=== PATIENT | female | born 1990 | race Caucasian/White ===

== ENCOUNTER 2018-10-12 22:40 | Emergency (ER) | payer OTHER ==
[~2018-10-12] VITALS: Ht 162.6 cm; Wt 59.0 kg
[~2018-10-12 22:40] MED LIST: DEPAKOTE; KLONOPIN; RISPERDAL
[2018-10-13 02:03] VITALS: BP 110/70
== END 2018-10-13 02:15 | disposition home or self-care (01) ==
LOC: EMS 22:42
DX: F20.9 Schizophrenia, unspecified (principal)

== ENCOUNTER 2018-11-25 17:48 | Inpatient (IN) | payer MEDICAID, OTHER ==
[~2018-11-25] VITALS: Ht 162.6 cm; Wt 76.1 kg
[2018-11-25] MEDS ORDERED: RISP2 PO (18:31)
[2018-11-25] MEDS ORDERED: TRAZ-220 PO (18:31)
[2018-11-25] MEDS ORDERED: PALI234D IM (18:31)
[2018-11-25] MEDS ORDERED: QUET200T PO (18:31)
[2018-11-25] MEDS ORDERED: OLAN10TA3 PO (18:31)
[2018-11-25] MEDS ORDERED: DIVA500T52 PO (18:31)
[2018-11-25 18:43] LABS: AMPHET/METH SCREEN,URINE NEGATIVE (NEGATIVE); BARBITURATE SCREEN, URINE NEGATIVE (NEGATIVE); BENZODIAZEPINES SCREEN,URINE NEGATIVE (NEGATIVE); CANNABINOID SCREEN,URINE NEGATIVE (NEGATIVE); COCAINE SCREEN,URINE NEGATIVE (NEGATIVE); METHADONE SCREEN, URINE NEGATIVE (NEGATIVE); OPIATE SCREEN,URINE NEGATIVE (NEGATIVE); PHENCYCLIDINE SCREEN,URINE NEGATIVE (NEGATIVE)
[2018-11-25 18:54] LABS: BASOPHILS % (AUTO) 0.2 % (0.0-2.0); EOSINOPHILS % (AUTO) 0 % (1.0-6.0); HEMATOCRIT 39.1 % (36-46); HEMOGLOBIN 13.1 g/dL (12.0-16.0); LYMPHOCYTES # (AUTO) 2.8 K/uL (1.0-4.8); LYMPHOCYTES % (AUTO) 28.9 % (22.0-44.0); MEAN CORPUSCULAR HEMOGLOBIN 33.1 pg (26.0-34.0); MEAN CORPUSCULAR HGB CONC 33.6 G/dL (31.0-37.0); MEAN CORPUSCULAR VOLUME 99 fL (80-100); MONOCYTES % (AUTO) 10.4 % (2.0-9.0); NEUTROPHILS # (AUTO) 5.8 K/uL (1.8-7.7); NEUTROPHILS % (AUTO) 60.5 % (40.0-70.0); PLATELET COUNT (AUTO) 231 K/uL (150-450); RED BLOOD CELL COUNT(AUTO) 3.96 MIL/uL (4.00-5.20); RED CELL DISTRIBUTION WIDTH 12.8 % (11.5-14.5)
[2018-11-25 19:03] LABS: ANION GAP 6 mmol/L (8-16); CALCIUM, TOTAL 9.2 mg/dL (8.8-10.5); CARBON DIOXIDE 29 mmol/L (22-29); CHLORIDE 105 mmol/L (98-107); CREATININE 0.77 mg/dL (0.60-1.30); GLOMERULAR FILTR. RATE CALC > 60 mL/min (>60); GLUCOSE,RANDOM 85 mg/dL (70-110); POTASSIUM 3.9 mmol/L (3.5-5.1); SODIUM SERUM 140 mmol/L (136-145); UREA NITROGEN, BLOOD 14 mg/dL (7-18)
[2018-11-25] MEDS ORDERED: ACETAMINOPHEN 325 MG TABLET PO ONE (19:30)
[2018-11-25 19:31] LABS: ALANINE AMINOTRANSFERASE 15 U/L (12-78); ALBUMIN 3.5 g/dL (3.4-5.0); ALKALINE PHOSPHATASE 66 U/L (46-116); ASPARTATE AMINOTRANSFERASE 10 U/L (15-37); BILIRUBIN,TOTAL 0.3 mg/dL (0.1-1.0); HCG,QUANTITATIVE 1 mIU/mL (0-6); TOTAL PROTEIN, SERUM 7.6 g/dL (6.4-8.2)
[2018-11-25 21:20] LABS: VALPROIC ACID 80 mcg/mL (50-100)
[2018-11-25] MEDS ORDERED: RisperiDONE 1 MG TABLET PO ONE (21:30)
[2018-11-25] MEDS ORDERED: QUEtiapine FUMARATE 100 MG TABLET PO ONE (21:30)
[2018-11-25] MEDS ORDERED: TraZODone HCL 50 MG TABLET PO ONE (21:30)
[2018-11-25] MEDS ORDERED: LORazepam 2 MG TABLET PO PRN (22:00)
[2018-11-26 08:52] LABS: HEMOGLOBIN A1C 5.5 % (4.5-6.2)
[2018-11-26 09:01] LABS: ALANINE AMINOTRANSFERASE 14 U/L (12-78); ALKALINE PHOSPHATASE 56 U/L (46-116); ANION GAP 6 mmol/L (8-16); ASPARTATE AMINOTRANSFERASE 13 U/L (15-37); BILIRUBIN,TOTAL 0.2 mg/dL (0.1-1.0); CALCIUM, TOTAL 8.8 mg/dL (8.8-10.5); CARBON DIOXIDE 29 mmol/L (22-29); CHLORIDE 105 mmol/L (98-107); CHOL/HDL RATIO 1.9 (3.9-5.7); CHOLESTEROL 143 mg/dL (131-200); CREATININE 0.67 mg/dL (0.60-1.30); FREE T4 (FREE THYROXINE) 0.76 ng/dL (0.76-1.46); GLOMERULAR FILTR. RATE CALC > 60 mL/min (>60); GLUCOSE,RANDOM 81 mg/dL (70-110); HCG,QUANTITATIVE < 1 mIU/mL (0-6); HDL CHOLESTEROL 77 mg/dL (40-60); LDL CHOL (CALC.) 58 mg/dL (0-130); POTASSIUM 4.6 mmol/L (3.5-5.1); SODIUM SERUM 140 mmol/L (136-145); TOTAL PROTEIN, SERUM 6.8 g/dL (6.4-8.2); TRIGLYCERIDES 39 mg/dL (15-150); UREA NITROGEN, BLOOD 12 mg/dL (7-18); VALPROIC ACID 40 mcg/mL (50-100)
[2018-11-26] MEDS ORDERED: MAGNESIUM HYDROXIDE SUSPENSION 30 ML UDCUP PO PRN (16:00)
[2018-11-26] MEDS ORDERED: TUBERCULIN, PURIFIED PROTEIN DERIVATIVE 5 TU/0.1 ML SYRINGE ID ONE (16:00)
[2018-11-26] MEDS ORDERED: MAG HYDROX/AL HYDROX/SIMETH ES 30 ML SUSPENSION UDCUP PO PRN (16:00)
[2018-11-26] MEDS ORDERED: ACETAMINOPHEN 325 MG TABLET PO PRN (16:00)
[2018-11-26] MEDS ORDERED: LOPERAMIDE HCL 2 MG CAPSULE PO PRN (16:00)
[2018-11-26] MEDS ORDERED: GuaiFENesin/D-METHORPHAN [SUGAR-FREE] 200-20MG/10 ML SYRUP UDCUP PO PRN (16:00)
[2018-11-26] MEDS ORDERED: PROMETHAZINE HCL 25 MG TABLET PO PRN (16:00)
[2018-11-26] MEDS: DIVALPROEX SODIUM 500 MG ER TABLET PO SCH (21:01)
[2018-11-26] MEDS: THIAMINE HCL 100 MG TABLET PO SCH (21:02)
[2018-11-26 21:45] VITALS: BP 105/73
[2018-11-27 03:06] LABS: HSV 1 TYPE SPECIFIC IGG <0.91 index (0.00-0.90)
[2018-11-27 06:06] LABS: HIV 1-2 SCREEN 4TH GEN W/RFLX Non Reactive (Non Reactive)
[2018-11-27 06:28] VITALS: BP 110/68
[2018-11-27 07:42] LABS: BASOPHILS % (AUTO) 0.3 % (0.0-2.0); EOSINOPHILS % (AUTO) 0.1 % (1.0-6.0); HEMATOCRIT 38.4 % (36-46); HEMOGLOBIN 12.7 g/dL (12.0-16.0); LYMPHOCYTES # (AUTO) 4.3 K/uL (1.0-4.8); LYMPHOCYTES % (AUTO) 44.7 % (22.0-44.0); MEAN CORPUSCULAR HEMOGLOBIN 33.1 pg (26.0-34.0); MEAN CORPUSCULAR VOLUME 100 fL (80-100); MONOCYTES # (AUTO) 1.2 K/uL (0.1-1.0); MONOCYTES % (AUTO) 12.1 % (2.0-9.0); NEUTROPHILS # (AUTO) 4.1 K/uL (1.8-7.7); NEUTROPHILS % (AUTO) 42.8 % (40.0-70.0); PLATELET COUNT (AUTO) 221 K/uL (150-450); RED BLOOD CELL COUNT(AUTO) 3.83 MIL/uL (4.00-5.20); RED CELL DISTRIBUTION WIDTH 13.1 % (11.5-14.5)
[2018-11-27 08:12] LABS: FREE T4 (FREE THYROXINE) 0.95 ng/dL (0.76-1.46); THYROID STIMULATING HORMONE 6.78 uIU/mL (0.36-3.74)
[2018-11-27 08:25] VITALS: BP 112/48
[2018-11-27] MEDS ORDERED: CloZAPine 25 MG TABLET PO SCH (09:00)
[2018-11-27] MEDS: FOLIC ACID 1 MG TABLET PO SCH (09:04)
[2018-11-27] MEDS: THIAMINE HCL 100 MG TABLET PO SCH ×2 (09:04→16:07)
[2018-11-27] MEDS: MULTIVITAMINS WITH MINERALS, THERAPEUTIC TABLET PO SCH (09:04)
[2018-11-27] MEDS: LORazepam 0.5 MG TABLET PO PRN ×2 (09:05→19:01)
[2018-11-27 10:30] VITALS: BP 125/69
[2018-11-27 10:46] VITALS: BP 117/72
[2018-11-27 16:23] VITALS: BP 111/64
[2018-11-27] MEDS: HydrOXYzine PAMOATE 50 MG CAPSULE PO PRN (19:01)
[2018-11-27] MEDS: DIVALPROEX SODIUM 500 MG ER TABLET PO SCH (20:03)
[2018-11-27] MEDS ORDERED: HALOPERIDOL LACTATE 5 MG/ML VIAL IM ONE (21:45)
[2018-11-27] MEDS ORDERED: LORazepam 2 MG/ML VIAL ONE (21:45)
[2018-11-27] MEDS ORDERED: HALOPERIDOL LACTATE 5 MG/ML VIAL ONE (21:45)
[2018-11-27] MEDS ORDERED: DiphenhydrAMINE HCL 50 MG/ML VIAL ONE (21:45)
[2018-11-27] MEDS ORDERED: LORazepam 2 MG/ML VIAL IM ONE (21:45)
[2018-11-27] MEDS ORDERED: DiphenhydrAMINE HCL 50 MG/ML VIAL IM ONE (21:45)
[2018-11-28 05:44] VITALS: BP 108/68
[2018-11-28] MEDS ORDERED: CloZAPine 25 MG TABLET PO SCH ×2 (09:00→21:00)
[2018-11-28] MEDS: FOLIC ACID 1 MG TABLET PO SCH (09:20)
[2018-11-28] MEDS: MULTIVITAMINS WITH MINERALS, THERAPEUTIC TABLET PO SCH (09:20)
[2018-11-28] MEDS: THIAMINE HCL 100 MG TABLET PO SCH ×2 (09:20→16:14)
[2018-11-28] MEDS: LORazepam 0.5 MG TABLET PO PRN ×2 (12:09→16:14)
[2018-11-28] MEDS: HydrOXYzine PAMOATE 50 MG CAPSULE PO PRN (12:09)
[2018-11-28 14:04] VITALS: BP 115/62
[2018-11-28 16:00] VITALS: BP 114/64
[2018-11-28] MEDS: DIVALPROEX SODIUM 500 MG ER TABLET PO SCH (20:07)
[2018-11-29 05:56] VITALS: BP 103/62
[2018-11-29 08:20] VITALS: BP 93/75
[2018-11-29] MEDS: FOLIC ACID 1 MG TABLET PO SCH (08:40)
[2018-11-29] MEDS: MULTIVITAMINS WITH MINERALS, THERAPEUTIC TABLET PO SCH (08:40)
[2018-11-29] MEDS: THIAMINE HCL 100 MG TABLET PO SCH ×2 (08:40→17:09)
[2018-11-29] MEDS: HydrOXYzine PAMOATE 50 MG CAPSULE PO PRN ×2 (08:40→16:06)
[2018-11-29] MEDS ORDERED: CloZAPine 25 MG TABLET PO SCH ×2 (09:00→21:00)
[2018-11-29] MEDS: LORazepam 0.5 MG TABLET PO PRN ×2 (12:21→16:06)
[2018-11-29] MEDS: OLANZapine 5 MG RAPDIS TABLET PO PRN (16:06)
[2018-11-29 16:08] VITALS: BP 140/92
[2018-11-29] MEDS: DIVALPROEX SODIUM 500 MG ER TABLET PO SCH (20:15)
[2018-11-29] MEDS: ZOLPIDEM TARTRATE 10 MG TABLET PO PRN (21:02)
[2018-11-30 02:53] VITALS: BP 132/87
[2018-11-30] MEDS ORDERED: AZITHROMYCIN 250 MG TABLET PO ONE (07:45)
[2018-11-30 08:07] VITALS: BP 112/59
[2018-11-30] MEDS: MULTIVITAMINS WITH MINERALS, THERAPEUTIC TABLET PO SCH (09:44)
[2018-11-30] MEDS: CloZAPine 25 MG TABLET PO SCH ×2 (09:44→20:07)
[2018-11-30] MEDS: THIAMINE HCL 100 MG TABLET PO SCH ×2 (09:44→17:04)
[2018-11-30] MEDS: FLUoxetine HCL 10 MG CAPSULE PO SCH (09:44)
[2018-11-30] MEDS: FOLIC ACID 1 MG TABLET PO SCH (09:44)
[2018-11-30] MEDS ORDERED: PROZ10 PO (12:29)
[2018-11-30 16:00] VITALS: BP 142/77
[2018-11-30] MEDS ORDERED: CefTRIAXone SODIUM 1 GM/VIAL IM ONE (16:00)
[2018-11-30] MEDS ORDERED: LIDOCAINE/PF 1% 2 ML VIAL IM ONE (16:00)
[2018-11-30] MEDS: DIVALPROEX SODIUM 500 MG ER TABLET PO SCH (20:07)
[2018-11-30] MEDS: LORazepam 0.5 MG TABLET PO PRN (20:19)
[2018-11-30] MEDS: ZOLPIDEM TARTRATE 10 MG TABLET PO PRN (20:50)
[2018-12-01 05:54] VITALS: BP 120/70
[2018-12-01 08:01] VITALS: BP 117/71
[2018-12-01] MEDS: HydrOXYzine PAMOATE 50 MG CAPSULE PO PRN (09:31)
[2018-12-01] MEDS: FLUoxetine HCL 10 MG CAPSULE PO SCH (09:31)
[2018-12-01] MEDS: MULTIVITAMINS WITH MINERALS, THERAPEUTIC TABLET PO SCH (09:31)
[2018-12-01] MEDS: LORazepam 0.5 MG TABLET PO PRN ×2 (09:32→16:26)
[2018-12-01] MEDS: FOLIC ACID 1 MG TABLET PO SCH (09:32)
[2018-12-01] MEDS: CloZAPine 25 MG TABLET PO SCH ×2 (09:32→21:17)
[2018-12-01] MEDS: THIAMINE HCL 100 MG TABLET PO SCH ×2 (09:32→16:25)
[2018-12-01 15:30] VITALS: BP 139/90
[2018-12-01 16:35] VITALS: BP 132/87
[2018-12-01] MEDS: ZOLPIDEM TARTRATE 10 MG TABLET PO PRN (21:15)
[2018-12-01] MEDS: DIVALPROEX SODIUM 500 MG ER TABLET PO SCH (21:16)
[2018-12-02 03:35] VITALS: BP 128/85
[2018-12-02] MEDS ORDERED: OMEPRAZOLE 20 MG CAPSULE PO SCH (06:30)
[2018-12-02 08:04] VITALS: BP 100/50
[2018-12-02] MEDS ORDERED: CloZAPine 25 MG TABLET PO SCH (09:00)
[2018-12-02] MEDS: FLUoxetine HCL 10 MG CAPSULE PO SCH (09:16)
[2018-12-02] MEDS: OLANZapine 5 MG RAPDIS TABLET PO PRN (09:16)
[2018-12-02] MEDS: THIAMINE HCL 100 MG TABLET PO SCH ×2 (09:16→16:01)
[2018-12-02] MEDS: FOLIC ACID 1 MG TABLET PO SCH (09:16)
[2018-12-02] MEDS: MULTIVITAMINS WITH MINERALS, THERAPEUTIC TABLET PO SCH (09:16)
[2018-12-02] MEDS ORDERED: CLOZ25TA4 PO ×2 (09:51→11:12)
[2018-12-02] MEDS ORDERED: PROZ10 PO ×2 (09:51→11:12)
[2018-12-02] MEDS ORDERED: DIVA500T52 PO ×2 (09:51→11:12)
[2018-12-02] MEDS ORDERED: CLOZ100 PO ×2 (09:51→11:12)
[2018-12-02] MEDS ORDERED: CloZAPine 100 MG TABLET PO SCH (21:00)
[2018-12-03] MEDS ORDERED: CloZAPine 25 MG TABLET PO SCH (09:00)
[2018-12-03] MEDS ORDERED: CloZAPine 100 MG TABLET PO SCH (21:00)
[2018-12-04] MEDS ORDERED: CloZAPine 25 MG TABLET PO SCH (09:00)
[2018-12-04] MEDS ORDERED: CloZAPine 100 MG TABLET PO SCH (21:00)
[2018-12-05] MEDS ORDERED: CloZAPine 100 MG TABLET PO SCH (09:00)
[2018-12-07] MEDS ORDERED: CloZAPine 25 MG TABLET PO SCH (09:00)
[2018-12-07] MEDS ORDERED: CloZAPine 100 MG TABLET PO SCH (21:00)
[2018-12-08] MEDS ORDERED: CloZAPine 25 MG TABLET PO SCH (09:00)
[2018-12-08] MEDS ORDERED: CloZAPine 100 MG TABLET PO SCH (21:00)
[2018-12-09] MEDS ORDERED: CloZAPine 100 MG TABLET PO SCH ×2 (09:00→21:00)
== END 2018-12-02 18:42 | DRG 750 ==
LOC: EMS 17:48 → B3A 11-26 13:00 → AHU 11-26 13:12 → B3A 11-26 21:00
PROVIDERS: ADMIT Psychiatry & Neurology Psychiatry; ATTEND Psychiatry & Neurology Psychiatry
DX: F25.0 Schizoaffective disorder, bipolar type (principal); R45.851 Suicidal ideations; Z91.19 Patient's noncompliance with other medical treatment and regimen; D64.9 Anemia, unspecified; E02 Subclinical iodine-deficiency hypothyroidism; G47.00 Insomnia, unspecified; Z79.899 Other long term (current) drug therapy
CPT/HCPCS: 80074; 83036; 84436; 84439; 84443; 86592; 86631; 86695; 86696; 87081; 87389; G0480; J0696; J1200; J1630; J2060; J3490

== ENCOUNTER 2022-10-27 23:52 | Inpatient (IN) | payer MEDICAID ==
[~2022-10-27] VITALS: Ht 165.1 cm; Wt 77.6 kg
[~2022-10-27 23:52] MED LIST changes: +CLOZ100T68 PO; +CLOZ25TA10 PO; +CLOZ25TA55 PO; -DEPAKOTE; +DIVA500T53 PO; +FLUO10CA24 PO; -KLONOPIN; -RISPERDAL
[2022-10-28] MEDS ORDERED: HALOPERIDOL 5 MG TABLET PO PRN (05:00)
[2022-10-28] MEDS ORDERED: ZOLPIDEM TARTRATE 10 MG TABLET PO PRN (05:00)
[2022-10-28 05:50] VITALS: BP 105/66
[2022-10-28] MEDS ORDERED: NICOTINE 14 MG/24 HOUR PATCH TD PRN (07:30)
[2022-10-28] MEDS ORDERED: DOCUSATE SODIUM 100 MG CAPSULE PO PRN (07:30)
[2022-10-28] MEDS ORDERED: MAGNESIUM HYDROXIDE SUSPENSION 30 ML UDCUP PO PRN (07:30)
[2022-10-28] MEDS ORDERED: CloNIDine HCL 0.1 MG TABLET PO PRN (07:30)
[2022-10-28] MEDS ORDERED: ACETAMINOPHEN 325 MG TABLET PO PRN (07:30)
[2022-10-28] MEDS ORDERED: ALBUTEROL SULFATE HFA 90 MCG/PUFF 8 GM INHALER IH PRN (07:30)
[2022-10-28] MEDS ORDERED: ONDANSETRON HCL 4 MG TABLET PO PRN (07:30)
[2022-10-28] MEDS ORDERED: PETROLATUM,WHITE 28 GM JELLY TP PRN (07:30)
[2022-10-28] MEDS ORDERED: MAG HYDROX/AL HYDROX/SIMETH ES 30 ML SUSPENSION UDCUP PO PRN (07:30)
[2022-10-28] MEDS ORDERED: IBUPROFEN 400 MG TABLET PO PRN (07:30)
[2022-10-28] MEDS ORDERED: LOPERAMIDE HCL 2 MG CAPSULE PO PRN (07:30)
[2022-10-28] MEDS ORDERED: GuaiFENesin/D-METHORPHAN [SUGAR-FREE] 200-20MG/10 ML SYRUP UDCUP PO PRN (07:30)
[2022-10-28 08:58] VITALS: BP 104/66
[2022-10-28] MEDS: BusPIRone HCL 10 MG TABLET PO SCH ×2 (13:56→16:55)
[2022-10-28] MEDS: BENZTROPINE MESYLATE 2 MG TABLET PO SCH (16:54)
[2022-10-28] MEDS: QUEtiapine FUMARATE 100 MG TABLET PO SCH (20:18)
[2022-10-28 20:35] VITALS: BP 111/67
[2022-10-29 06:27] LABS: HEMOGLOBIN A1C 5.2 % (3.8-5.6)
[2022-10-29 06:43] LABS: BASOPHILS % (AUTO) 0.1 % (0.0-2.0); EOSINOPHILS % (AUTO) 0 % (1.0-6.0); HEMATOCRIT 38.6 % (36-46); HEMOGLOBIN 12.7 g/dL (12.0-16.0); LYMPHOCYTES # (AUTO) 3.1 K/uL (1.0-4.8); LYMPHOCYTES % (AUTO) 36.8 % (22.0-44.0); MEAN CORPUSCULAR HEMOGLOBIN 31.1 pg (26.0-34.0); MEAN CORPUSCULAR HGB CONC 32.8 G/dL (31.0-37.0); MEAN CORPUSCULAR VOLUME 95 fL (80-100); MONOCYTES # (AUTO) 0.7 K/uL (0.1-1.0); MONOCYTES % (AUTO) 8.8 % (2.0-9.0); NEUTROPHILS # (AUTO) 4.6 K/uL (1.8-7.7); NEUTROPHILS % (AUTO) 54.3 % (40.0-70.0); PLATELET COUNT (AUTO) 286 K/uL (150-450); RED BLOOD CELL COUNT(AUTO) 4.07 MIL/uL (4.00-5.20); RED CELL DISTRIBUTION WIDTH 13.3 % (11.5-14.5)
[2022-10-29 06:45] LABS: ALANINE AMINOTRANSFERASE 19 U/L (12-78); ALBUMIN 3.4 g/dL (3.4-5.0); ALKALINE PHOSPHATASE 74 U/L (46-116); ANION GAP 9 mmol/L (8-16); ASPARTATE AMINOTRANSFERASE 10 U/L (15-37); BILIRUBIN,TOTAL 0.3 mg/dL (0.1-1.0); CALCIUM, TOTAL 9.2 mg/dL (8.8-10.5); CARBON DIOXIDE 26 mmol/L (22-29); CHLORIDE 106 mmol/L (98-107); CHOL/HDL RATIO 2.8 (3.9-5.7); CHOLESTEROL 190 mg/dL (131-200); CREATININE 0.78 mg/dL (0.60-1.30); FREE T4 (FREE THYROXINE) 0.86 ng/dL (0.76-1.46); GLOMERULAR FILTR. RATE CALC > 60 mL/min (>60); GLUCOSE,RANDOM 87 mg/dL (70-110); HDL CHOLESTEROL 69 mg/dL (40-60); LDL CHOL (CALC.) 99 mg/dL (0-130); POTASSIUM 4.2 mmol/L (3.5-5.1); SODIUM SERUM 141 mmol/L (136-145); THYROID STIMULATING HORMONE 1.45 uIU/mL (0.36-3.74); TOTAL PROTEIN, SERUM 7.2 g/dL (6.4-8.2); TRIGLYCERIDES 111 mg/dL (15-150)
[2022-10-29] MEDS: BusPIRone HCL 10 MG TABLET PO SCH ×3 (08:23→16:34)
[2022-10-29] MEDS: BENZTROPINE MESYLATE 2 MG TABLET PO SCH ×2 (08:23→16:34)
[2022-10-29 08:41] VITALS: BP 108/71
[2022-10-29] MEDS: LORazepam 2 MG TABLET PO PRN (19:16)
[2022-10-29 20:12] VITALS: BP 109/73
[2022-10-29] MEDS: QUEtiapine FUMARATE 100 MG TABLET PO SCH (20:19)
[2022-10-30 09:16] VITALS: BP 102/63
[2022-10-30] MEDS: BusPIRone HCL 10 MG TABLET PO SCH ×3 (09:22→17:18)
[2022-10-30] MEDS: BENZTROPINE MESYLATE 2 MG TABLET PO SCH ×2 (09:22→17:17)
[2022-10-30] MEDS: CloZAPine 100 MG TABLET PO SCH (17:17)
[2022-10-30] MEDS ORDERED: LORazepam 2 MG/ML VIAL ONE (19:09)
[2022-10-30] MEDS ORDERED: HALOPERIDOL LACTATE 5 MG/ML VIAL ONE (19:10)
[2022-10-30] MEDS ORDERED: DiphenhydrAMINE HCL 50 MG/ML VIAL ONE (19:10)
[2022-10-30] MEDS ORDERED: LORazepam 2 MG/ML VIAL IM ONE (19:15)
[2022-10-30] MEDS ORDERED: DiphenhydrAMINE HCL 50 MG/ML VIAL IM ONE (19:15)
[2022-10-30] MEDS ORDERED: HALOPERIDOL LACTATE 5 MG/ML VIAL IM ONE (19:15)
[2022-10-30] MEDS: QUEtiapine FUMARATE 100 MG TABLET PO SCH (20:03)
[2022-10-30 20:15] VITALS: BP 117/59
[2022-10-30 20:51] VITALS: BP 117/65
[2022-10-31 09:03] VITALS: BP 109/65
[2022-10-31] MEDS: BusPIRone HCL 10 MG TABLET PO SCH ×3 (09:33→16:37)
[2022-10-31] MEDS: BENZTROPINE MESYLATE 2 MG TABLET PO SCH ×2 (09:33→16:37)
[2022-10-31] MEDS: CloZAPine 100 MG TABLET PO SCH ×2 (09:33→16:37)
[2022-10-31 20:27] VITALS: BP 110/60
[2022-10-31] MEDS: QUEtiapine FUMARATE 100 MG TABLET PO SCH (20:28)
[2022-11-01 08:13] LABS: PHOSPHORUS 4.8 mg/dL (2.5-4.9); POTASSIUM 4.5 mmol/L (3.5-5.1)
[2022-11-01 08:17] VITALS: BP 114/68
[2022-11-01] MEDS: BENZTROPINE MESYLATE 2 MG TABLET PO SCH ×2 (08:23→16:37)
[2022-11-01] MEDS: BusPIRone HCL 10 MG TABLET PO SCH ×3 (08:23→16:38)
[2022-11-01] MEDS: CloZAPine 100 MG TABLET PO SCH ×2 (08:23→16:38)
[2022-11-01] MEDS ORDERED: PALIPERIDONE PALMITATE 234 MG/1.5 ML SYRINGE IM SCH ×2 (09:00)
[2022-11-01] MEDS: LORazepam 2 MG TABLET PO PRN (18:37)
[2022-11-01 20:28] VITALS: BP 102/60
[2022-11-01] MEDS: QUEtiapine FUMARATE 100 MG TABLET PO SCH (21:00)
[2022-11-02 06:57] VITALS: BP 102/63
[2022-11-02 08:34] VITALS: BP 119/77
[2022-11-02] MEDS: CloZAPine 100 MG TABLET PO SCH ×2 (08:45→16:43)
[2022-11-02] MEDS: BusPIRone HCL 10 MG TABLET PO SCH ×3 (08:45→16:43)
[2022-11-02] MEDS: BENZTROPINE MESYLATE 2 MG TABLET PO SCH ×2 (08:45→16:43)
[2022-11-02] MEDS: QUEtiapine FUMARATE 100 MG TABLET PO SCH (20:20)
[2022-11-02 20:52] VITALS: BP 113/60
[2022-11-03] MEDS: CloZAPine 100 MG TABLET PO SCH ×2 (08:19→16:31)
[2022-11-03] MEDS: BENZTROPINE MESYLATE 2 MG TABLET PO SCH ×2 (08:19→16:31)
[2022-11-03] MEDS: BusPIRone HCL 10 MG TABLET PO SCH ×3 (08:19→16:31)
[2022-11-03 09:37] VITALS: BP 107/65
[2022-11-03] MEDS: LevETIRAcetam 500 MG TABLET PO SCH ×2 (11:43→20:47)
[2022-11-03 20:27] VITALS: BP 121/71
[2022-11-03] MEDS: QUEtiapine FUMARATE 100 MG TABLET PO SCH (20:47)
[2022-11-03] MEDS ORDERED: LevETIRAcetam 250 MG TABLET PO SCH (21:00)
[2022-11-04 08:27] VITALS: BP 120/70
[2022-11-04] MEDS: BENZTROPINE MESYLATE 2 MG TABLET PO SCH ×2 (08:35→16:07)
[2022-11-04] MEDS: LevETIRAcetam 500 MG TABLET PO SCH ×2 (08:35→20:43)
[2022-11-04] MEDS: CloZAPine 100 MG TABLET PO SCH ×2 (08:35→16:07)
[2022-11-04] MEDS: BusPIRone HCL 10 MG TABLET PO SCH ×3 (08:35→16:07)
[2022-11-04 16:18] VITALS: BP 108/56
[2022-11-04] MEDS: QUEtiapine FUMARATE 100 MG TABLET PO SCH (20:43)
[2022-11-05 01:20] VITALS: BP 112/64
[2022-11-05 08:55] VITALS: BP 115/78
[2022-11-05] MEDS: BENZTROPINE MESYLATE 2 MG TABLET PO SCH ×2 (09:44→16:31)
[2022-11-05] MEDS: BusPIRone HCL 10 MG TABLET PO SCH ×3 (09:44→16:31)
[2022-11-05] MEDS: LevETIRAcetam 500 MG TABLET PO SCH ×2 (09:44→21:00)
[2022-11-05] MEDS: CloZAPine 100 MG TABLET PO SCH ×2 (09:48→16:31)
[2022-11-05] MEDS ORDERED: FLUO10CA24 PO (18:20)
[2022-11-05] MEDS: QUEtiapine FUMARATE 100 MG TABLET PO SCH (21:00)
[2022-11-05] MEDS ORDERED: LEVE750T66 PO (21:54)
[2022-11-05] MEDS ORDERED: PALI234D IM (21:56)
[2022-11-05] MEDS ORDERED: CLOZ100T68 PO (21:57)
[2022-11-05] MEDS ORDERED: QUET100T PO (21:58)
[2022-11-05] MEDS ORDERED: BENZ2TAB76 PO (22:00)
[2022-11-05] MEDS ORDERED: BUSP10TA23 PO (22:00)
== END 2022-11-06 01:37 | disposition short-term general hospital (02) | DRG 750 ==
LOC: B2S 10-28 04:52
PROVIDERS: ADMIT Psychiatry & Neurology Child & Adolescent Psychiatry; ATTEND Psychiatry & Neurology Child & Adolescent Psychiatry
DX: F25.1 Schizoaffective disorder, depressive type (principal); I95.9 Hypotension, unspecified; G40.409 Other generalized epilepsy and epileptic syndromes, not intractable, without status epilepticus; G47.00 Insomnia, unspecified; Z79.899 Other long term (current) drug therapy
CPT/HCPCS: 80053; 80061; 83036; 83735; 84100; 84132; 84439; 84443; 85025; J1200; J1630; J2060

== ENCOUNTER 2022-11-13 14:12 | Inpatient (IN) | payer MEDICAID ==
[~2022-11-13] VITALS: Ht 165.1 cm; Wt 77.8 kg
[~2022-11-13 14:12] MED LIST changes: +BENZ2TAB71 PO; +BUSP10TA23 PO; -CLOZ25TA10 PO; -CLOZ25TA55 PO; -DIVA500T53 PO; -FLUO10CA24 PO; +LEVE750T66 PO; +PALI234D IM; +QUET100T PO
[2022-11-13 16:11] VITALS: BP 132/89
[2022-11-13] MEDS ORDERED: NICOTINE 14 MG/24 HOUR PATCH TD PRN (16:15)
[2022-11-13] MEDS ORDERED: ONDANSETRON HCL 4 MG TABLET PO PRN (16:15)
[2022-11-13] MEDS ORDERED: ALBUTEROL SULFATE HFA 90 MCG/PUFF 8 GM INHALER IH PRN (16:15)
[2022-11-13] MEDS ORDERED: LOPERAMIDE HCL 2 MG CAPSULE PO PRN (16:15)
[2022-11-13] MEDS ORDERED: CloNIDine HCL 0.1 MG TABLET PO PRN (16:15)
[2022-11-13] MEDS ORDERED: GuaiFENesin/D-METHORPHAN [SUGAR-FREE] 200-20MG/10 ML SYRUP UDCUP PO PRN (16:15)
[2022-11-13] MEDS ORDERED: IBUPROFEN 400 MG TABLET PO PRN (16:15)
[2022-11-13] MEDS ORDERED: PETROLATUM,WHITE 28 GM JELLY TP PRN (16:15)
[2022-11-13] MEDS ORDERED: DOCUSATE SODIUM 100 MG CAPSULE PO PRN (16:15)
[2022-11-13] MEDS ORDERED: MAG HYDROX/AL HYDROX/SIMETH ES 30 ML SUSPENSION UDCUP PO PRN (16:15)
[2022-11-13] MEDS ORDERED: MAGNESIUM HYDROXIDE SUSPENSION 30 ML UDCUP PO PRN (16:15)
[2022-11-13] MEDS ORDERED: ACETAMINOPHEN 325 MG TABLET PO PRN (16:15)
[2022-11-13] MEDS: LevETIRAcetam 500 MG TABLET PO SCH (17:42)
[2022-11-13] MEDS: QUEtiapine FUMARATE 100 MG TABLET PO SCH (20:05)
[2022-11-13] MEDS: ZOLPIDEM TARTRATE 10 MG TABLET PO PRN (21:05)
[2022-11-13 22:18] VITALS: BP 135/91
[2022-11-14 09:33] VITALS: BP 103/61
[2022-11-14] MEDS: BusPIRone HCL 10 MG TABLET PO SCH ×3 (09:55→17:15)
[2022-11-14] MEDS: BENZTROPINE MESYLATE 2 MG TABLET PO SCH ×2 (09:55→17:15)
[2022-11-14] MEDS: LevETIRAcetam 500 MG TABLET PO SCH ×2 (09:55→17:15)
[2022-11-14] MEDS: LEVOFLOXACIN 500 MG TABLET PO SCH (13:49)
[2022-11-14] MEDS: FLUCONAZOLE 150 MG TABLET PO SCH (13:49)
[2022-11-14] MEDS: QUEtiapine FUMARATE 100 MG TABLET PO SCH (20:18)
[2022-11-14 21:18] VITALS: BP 101/66
[2022-11-15 02:00] VITALS: BP 120/75
[2022-11-15] MEDS: BusPIRone HCL 10 MG TABLET PO SCH ×3 (08:12→16:50)
[2022-11-15] MEDS: BENZTROPINE MESYLATE 2 MG TABLET PO SCH ×2 (08:12→16:49)
[2022-11-15] MEDS: FLUCONAZOLE 150 MG TABLET PO SCH (08:12)
[2022-11-15] MEDS: LEVOFLOXACIN 500 MG TABLET PO SCH (08:12)
[2022-11-15] MEDS: LevETIRAcetam 500 MG TABLET PO SCH ×2 (08:12→16:49)
[2022-11-15 09:00] VITALS: BP 122/86
[2022-11-15] MEDS: QUEtiapine FUMARATE 100 MG TABLET PO SCH (20:39)
[2022-11-15 21:10] VITALS: BP 112/65
[2022-11-16] MEDS: LEVOFLOXACIN 500 MG TABLET PO SCH (08:13)
[2022-11-16] MEDS: LevETIRAcetam 500 MG TABLET PO SCH ×2 (08:13→16:38)
[2022-11-16] MEDS: FLUCONAZOLE 150 MG TABLET PO SCH (08:13)
[2022-11-16] MEDS: BusPIRone HCL 10 MG TABLET PO SCH ×3 (08:13→16:37)
[2022-11-16] MEDS: BENZTROPINE MESYLATE 2 MG TABLET PO SCH ×2 (08:14→16:37)
[2022-11-16 09:00] VITALS: BP 102/60
[2022-11-16] MEDS: QUEtiapine FUMARATE 100 MG TABLET PO SCH (20:54)
[2022-11-16 21:00] VITALS: BP 125/96
[2022-11-16] MEDS: ZOLPIDEM TARTRATE 10 MG TABLET PO PRN (21:23)
[2022-11-17 09:26] VITALS: BP 103/58
[2022-11-17] MEDS: LEVOFLOXACIN 500 MG TABLET PO SCH (09:31)
[2022-11-17] MEDS: BusPIRone HCL 10 MG TABLET PO SCH ×3 (09:31→16:08)
[2022-11-17] MEDS: FLUCONAZOLE 150 MG TABLET PO SCH (09:31)
[2022-11-17] MEDS: LevETIRAcetam 500 MG TABLET PO SCH ×2 (09:32→16:08)
[2022-11-17] MEDS: BENZTROPINE MESYLATE 2 MG TABLET PO SCH ×2 (09:32→16:08)
[2022-11-17 18:21] LABS: GLUCOMETER DEV NAME(LOC) 3E.C; GLUCOSE,POINT OF CARE 105 MG/DL (70-110)
[2022-11-17] MEDS: QUEtiapine FUMARATE 100 MG TABLET PO SCH (20:35)
[2022-11-17] MEDS: ZOLPIDEM TARTRATE 10 MG TABLET PO PRN (21:58)
[2022-11-17 23:24] VITALS: BP 110/76
[2022-11-18] MEDS: LevETIRAcetam 500 MG TABLET PO SCH ×2 (08:27→16:48)
[2022-11-18] MEDS: BusPIRone HCL 10 MG TABLET PO SCH ×3 (08:27→16:48)
[2022-11-18] MEDS: BENZTROPINE MESYLATE 2 MG TABLET PO SCH ×2 (08:27→16:48)
[2022-11-18] MEDS: FLUCONAZOLE 150 MG TABLET PO SCH (08:28)
[2022-11-18] MEDS: LEVOFLOXACIN 500 MG TABLET PO SCH (08:28)
[2022-11-18 09:07] VITALS: BP 97/62
[2022-11-18] MEDS: QUEtiapine FUMARATE 100 MG TABLET PO SCH (20:55)
[2022-11-18] MEDS: ZOLPIDEM TARTRATE 10 MG TABLET PO PRN (21:59)
[2022-11-18 22:23] VITALS: BP 117/63
[2022-11-19] MEDS: BENZTROPINE MESYLATE 2 MG TABLET PO SCH ×2 (09:20→16:06)
[2022-11-19] MEDS: LEVOFLOXACIN 500 MG TABLET PO SCH (09:20)
[2022-11-19] MEDS: FLUCONAZOLE 150 MG TABLET PO SCH (09:20)
[2022-11-19] MEDS: BusPIRone HCL 10 MG TABLET PO SCH ×3 (09:20→16:05)
[2022-11-19] MEDS: LevETIRAcetam 500 MG TABLET PO SCH ×2 (09:20→16:05)
[2022-11-19 09:23] VITALS: BP 105/60
[2022-11-19] MEDS: QUEtiapine FUMARATE 100 MG TABLET PO SCH (21:24)
[2022-11-20] MEDS: LevETIRAcetam 500 MG TABLET PO SCH ×2 (08:18→16:30)
[2022-11-20] MEDS: BusPIRone HCL 10 MG TABLET PO SCH ×3 (08:18→16:30)
[2022-11-20] MEDS: BENZTROPINE MESYLATE 2 MG TABLET PO SCH ×2 (08:18→16:30)
[2022-11-20 09:51] VITALS: BP 102/64
[2022-11-20 21:00] VITALS: BP 108/62
[2022-11-20] MEDS: QUEtiapine FUMARATE 100 MG TABLET PO SCH (21:06)
[2022-11-20] MEDS: ZOLPIDEM TARTRATE 10 MG TABLET PO PRN (22:55)
[2022-11-21 08:30] VITALS: BP 94/62
[2022-11-21] MEDS: LevETIRAcetam 500 MG TABLET PO SCH ×2 (08:53→16:13)
[2022-11-21] MEDS: BENZTROPINE MESYLATE 2 MG TABLET PO SCH ×2 (08:53→16:13)
[2022-11-21] MEDS: BusPIRone HCL 10 MG TABLET PO SCH ×3 (08:54→16:13)
[2022-11-21] MEDS: QUEtiapine FUMARATE 100 MG TABLET PO SCH (20:43)
[2022-11-21] MEDS: ZOLPIDEM TARTRATE 10 MG TABLET PO PRN (20:47)
[2022-11-21 21:04] VITALS: BP 104/64
[2022-11-22] MEDS: LevETIRAcetam 500 MG TABLET PO SCH ×2 (08:35→16:17)
[2022-11-22] MEDS: BENZTROPINE MESYLATE 2 MG TABLET PO SCH ×2 (08:35→16:17)
[2022-11-22] MEDS: BusPIRone HCL 10 MG TABLET PO SCH ×3 (08:35→16:17)
[2022-11-22 09:18] VITALS: BP 96/75
[2022-11-22] MEDS: LORazepam 2 MG TABLET PO PRN (15:21)
[2022-11-22] MEDS: HALOPERIDOL 5 MG TABLET PO PRN (15:21)
[2022-11-22] MEDS: QUEtiapine FUMARATE 100 MG TABLET PO SCH (20:23)
[2022-11-22] MEDS: ZOLPIDEM TARTRATE 10 MG TABLET PO PRN (20:40)
[2022-11-22 21:13] VITALS: BP 101/60
[2022-11-23 08:05] VITALS: BP 96/64
[2022-11-23] MEDS: BENZTROPINE MESYLATE 2 MG TABLET PO SCH ×2 (08:05→16:21)
[2022-11-23] MEDS: BusPIRone HCL 10 MG TABLET PO SCH ×3 (08:05→16:21)
[2022-11-23] MEDS: LevETIRAcetam 500 MG TABLET PO SCH ×2 (08:05→16:21)
[2022-11-23] MEDS ORDERED: PALIPERIDONE PALMITATE 234 MG/1.5 ML SYRINGE IM SCH (15:00)
[2022-11-23 20:25] VITALS: BP 112/59
[2022-11-23] MEDS: QUEtiapine FUMARATE 200 MG TABLET PO SCH (20:41)
[2022-11-23] MEDS: ZOLPIDEM TARTRATE 10 MG TABLET PO PRN (21:03)
[2022-11-24] MEDS: BusPIRone HCL 10 MG TABLET PO SCH ×3 (08:30→16:12)
[2022-11-24] MEDS: LevETIRAcetam 500 MG TABLET PO SCH ×2 (08:30→16:12)
[2022-11-24] MEDS: BENZTROPINE MESYLATE 2 MG TABLET PO SCH ×2 (08:30→16:12)
[2022-11-24 09:00] VITALS: BP 102/60
[2022-11-24] MEDS: LORazepam 2 MG TABLET PO PRN (13:25)
[2022-11-24] MEDS: HALOPERIDOL 5 MG TABLET PO PRN ×2 (13:25→19:40)
[2022-11-24 20:01] VITALS: BP 90/60
[2022-11-24] MEDS: QUEtiapine FUMARATE 200 MG TABLET PO SCH (20:01)
[2022-11-24] MEDS: ZOLPIDEM TARTRATE 10 MG TABLET PO PRN (20:33)
[2022-11-25 08:00] VITALS: BP 111/51
[2022-11-25] MEDS: BusPIRone HCL 10 MG TABLET PO SCH ×3 (08:48→16:18)
[2022-11-25] MEDS: BENZTROPINE MESYLATE 2 MG TABLET PO SCH ×2 (08:48→16:17)
[2022-11-25] MEDS: LevETIRAcetam 500 MG TABLET PO SCH ×2 (08:49→16:17)
[2022-11-25] MEDS: QUEtiapine FUMARATE 200 MG TABLET PO SCH (20:54)
[2022-11-25] MEDS: ZOLPIDEM TARTRATE 10 MG TABLET PO PRN (20:55)
[2022-11-25 22:27] VITALS: BP 106/62
[2022-11-26] MEDS: BENZTROPINE MESYLATE 2 MG TABLET PO SCH ×2 (09:04→17:32)
[2022-11-26] MEDS: LevETIRAcetam 500 MG TABLET PO SCH ×2 (09:04→17:32)
[2022-11-26] MEDS: BusPIRone HCL 10 MG TABLET PO SCH ×3 (09:05→17:32)
[2022-11-26 09:26] VITALS: BP 96/55
[2022-11-26] MEDS: HALOPERIDOL 5 MG TABLET PO PRN (13:09)
[2022-11-26] MEDS: LORazepam 2 MG TABLET PO PRN (13:09)
[2022-11-26] MEDS: QUEtiapine FUMARATE 200 MG TABLET PO SCH (20:43)
[2022-11-26] MEDS: ZOLPIDEM TARTRATE 10 MG TABLET PO PRN (20:55)
[2022-11-26 22:23] VITALS: BP 92/61
[2022-11-27 08:02] VITALS: BP 120/74
[2022-11-27] MEDS: BENZTROPINE MESYLATE 2 MG TABLET PO SCH (08:40)
[2022-11-27] MEDS: LevETIRAcetam 500 MG TABLET PO SCH (08:40)
[2022-11-27] MEDS: BusPIRone HCL 10 MG TABLET PO SCH ×2 (08:40→12:53)
[2022-11-27] MEDS ORDERED: PALIPERIDONE PALMITATE 234 MG/1.5 ML SYRINGE IM SCH (09:00)
[2022-11-27] MEDS ORDERED: BENZ2TAB71 PO (13:03)
[2022-11-27] MEDS ORDERED: QUET200T30 PO (13:04)
[2022-11-27] MEDS ORDERED: BUSP10TA23 PO (13:04)
[2022-11-27] MEDS ORDERED: PALI234D IM (13:04)
[2022-11-27] MEDS ORDERED: LEVE500T20 PO (14:23)
[2022-12-01] MEDS ORDERED: PALIPERIDONE PALMITATE 234 MG/1.5 ML SYRINGE IM SCH (09:00)
== END 2022-11-27 15:45 | disposition home or self-care (01) | DRG 750 ==
LOC: 3EI 14:55 → UNDOADMIN 14:55
PROVIDERS: ADMIT Psychiatry & Neurology Child & Adolescent Psychiatry; ATTEND Psychiatry & Neurology Child & Adolescent Psychiatry
DX: F25.0 Schizoaffective disorder, bipolar type (principal); F79 Unspecified intellectual disabilities; R45.851 Suicidal ideations; F25.1 Schizoaffective disorder, depressive type; G40.909 Epilepsy, unspecified, not intractable, without status epilepticus; F41.9 Anxiety disorder, unspecified; Z88.8 Allergy status to other drugs, medicaments and biological substances; Z79.899 Other long term (current) drug therapy; Z87.440 Personal history of urinary (tract) infections
CPT/HCPCS: 82962; 87081

== ENCOUNTER 2024-03-09 18:15 | Inpatient (IN) | payer MEDICAID ==
[~2024-03-09] VITALS: Ht 167.6 cm; Wt 87.7 kg
[2024-03-09 18:30] VITALS: BP 118/77; PULSE 107; RESP 18; TEMP 98.6; O2SAT 97
[2024-03-09 19:41] LABS: GLUCOMETER DEV NAME(LOC) POC.BV; POC SARS-COV2 AG, FIA NEGATIVE (NEGATIVE)
[2024-03-09] MEDS: LORazepam 2 MG TABLET PO PRN (21:55)
[2024-03-09] MEDS: HALOPERIDOL 5 MG TABLET PO PRN (21:55)
[2024-03-09] MEDS ORDERED: PNEUMOCOCCAL VACCINE POLYVALENT 0.5 ML SYRINGE [PPSV23] IM. ONE (23:00)
[2024-03-09 23:09] VITALS: BP 118/77; PULSE 107; RESP 18; TEMP 98.6; O2SAT 97
[2024-03-10 03:20] VITALS: BP 125/62; PULSE 95; RESP 16; TEMP 97.8; O2SAT 98
[2024-03-10 08:37] VITALS: BP 101/64; PULSE 73; RESP 17; TEMP 97.7; O2SAT 98
[2024-03-10 09:14] LABS: BASOPHILS % (AUTO) 0.7 % (0.0-2.0); EOSINOPHILS % (AUTO) 0.1 % (1.0-6.0); HEMATOCRIT 39.2 % (36-46); HEMOGLOBIN 12.9 g/dL (12.0-16.0); LYMPHOCYTES # (AUTO) 2.2 K/uL (1.0-4.8); LYMPHOCYTES % (AUTO) 33.1 % (22.0-44.0); MEAN CORPUSCULAR HEMOGLOBIN 30.8 pg (26.0-34.0); MEAN CORPUSCULAR VOLUME 93 fL (80-100); MONOCYTES # (AUTO) 0.5 K/uL (0.1-1.0); MONOCYTES % (AUTO) 7.2 % (2.0-9.0); NEUTROPHILS # (AUTO) 3.9 K/uL (1.8-7.7); NEUTROPHILS % (AUTO) 58.9 % (40.0-70.0); PLATELET COUNT (AUTO) 295 K/uL (150-450); RED CELL DISTRIBUTION WIDTH 13.1 % (11.5-14.5); WHITE BLOOD COUNT (AUTO) 6.5 K/uL (4.5-11.0)
[2024-03-10 09:32] LABS: HEMOGLOBIN A1C 5.1 % (3.8-5.6)
[2024-03-10 10:05] LABS: ALANINE AMINOTRANSFERASE 18 U/L (12-78); ALBUMIN 3.1 g/dL (3.4-5.0); ALKALINE PHOSPHATASE 75 U/L (46-116); ANION GAP 8 mmol/L (8-16); ASPARTATE AMINOTRANSFERASE 12 U/L (15-37); BILIRUBIN,TOTAL 0.4 mg/dL (0.1-1.0); CALCIUM, TOTAL 8.8 mg/dL (8.8-10.5); CARBON DIOXIDE 27 mmol/L (22-29); CHLORIDE 104 mmol/L (98-107); CHOL/HDL RATIO 2.2 (3.9-5.7); CHOLESTEROL 166 mg/dL (131-200); CREATININE 0.64 mg/dL (0.60-1.30); FREE T4 (FREE THYROXINE) 0.96 ng/dL (0.76-1.46); GLOMERULAR FILTR. RATE CALC > 60 mL/min (>60); GLUCOSE,RANDOM 84 mg/dL (70-110); HCG,QUANTITATIVE 2 mIU/mL (0-6); HDL CHOLESTEROL 74 mg/dL (40-60); LDL CHOL (CALC.) 83 mg/dL (0-130); POTASSIUM 4.1 mmol/L (3.5-5.1); SODIUM SERUM 139 mmol/L (136-145); THYROID STIMULATING HORMONE 1.41 uIU/mL (0.36-3.74); TOTAL PROTEIN, SERUM 6.6 g/dL (6.4-8.2); TRIGLYCERIDES 44 mg/dL (15-150); UREA NITROGEN, BLOOD 11 mg/dL (7-18)
[2024-03-10 21:00] VITALS: RESP 16; TEMP 96.5
[2024-03-10] MEDS: ZOLPIDEM TARTRATE 10 MG TABLET PO PRN (21:20)
[2024-03-11 08:49] VITALS: BP 126/74; PULSE 80; RESP 17; TEMP 97.6; O2SAT 98
[2024-03-11] MEDS ORDERED: PETROLATUM,WHITE 28 GM JELLY TP PRN (21:45)
[2024-03-11] MEDS ORDERED: ALBUTEROL SULFATE HFA 90 MCG/PUFF 8 GM INHALER IH PRN (21:45)
[2024-03-11] MEDS ORDERED: MAG HYDROX/ALUMINUM HYD/SIMETH ES 30 ML SUSPENSION UDCUP PO PRN (21:45)
[2024-03-11] MEDS ORDERED: LOPERAMIDE HCL 2 MG CAPSULE PO PRN (21:45)
[2024-03-11] MEDS ORDERED: CloNIDine HCL 0.1 MG TABLET PO PRN (21:45)
[2024-03-11] MEDS ORDERED: ACETAMINOPHEN 325 MG TABLET PO PRN (21:45)
[2024-03-11] MEDS ORDERED: BENZOCAINE/MENTHOL LOZENGE PO PRN (21:45)
[2024-03-11] MEDS ORDERED: DOCUSATE SODIUM 100 MG CAPSULE PO PRN (21:45)
[2024-03-11] MEDS ORDERED: OMEPRAZOLE 20 MG CAPSULE PO PRN (21:45)
[2024-03-11] MEDS ORDERED: MAGNESIUM HYDROXIDE SUSPENSION 30 ML UDCUP PO PRN (21:45)
[2024-03-11] MEDS ORDERED: BACITRACIN 28 GM OINTMENT TP PRN (21:45)
[2024-03-11] MEDS ORDERED: ONDANSETRON 4 MG TABLET PO PRN (21:45)
[2024-03-11] MEDS: IBUPROFEN 600 MG TABLET PO PRN (22:03)
[2024-03-11 22:06] VITALS: BP 112/78; PULSE 99; RESP 18; TEMP 96.4; O2SAT 99
[2024-03-12 08:11] VITALS: BP 101/60; PULSE 90; RESP 16; TEMP 98.1; O2SAT 97
[2024-03-12 19:42] VITALS: BP 107/77; PULSE 91; RESP 20; TEMP 97.1; O2SAT 98
[2024-03-12 22:43] VITALS: BP 107/77; PULSE 91; RESP 18; TEMP 97.1; O2SAT 98
[2024-03-13 05:09] LABS: HEPATITIS C AB (EIA) Non Reactive (Non Reactive)
[2024-03-13 08:28] VITALS: BP 105/61; PULSE 95; RESP 17; TEMP 97.6; O2SAT 98
[2024-03-13 09:01] LABS: APPEARANCE,URINE CLEAR (CLEAR); BILIRUBIN,URINE NEGATIVE (NEGATIVE); COLOR,URINE COLORLESS (YELLOW); GLUCOSE, URINE (UA) NEGATIVE (NEGATIVE); KETONES,URINE NEGATIVE (NEGATIVE); LEUKOCYTE ESTERASE ,URINE NEGATIVE (NEGATIVE); NITRATE,URINE NEGATIVE (NEGATIVE); OCCULT BLOOD,URINE SMALL (NEGATIVE); PROTEIN,URINE NEGATIVE (NEGATIVE); SPECIFIC GRAVITIY, URINE 1.004 (1.003-1.030); UROBILINOGEN,URINE <=1.0 mg/dL (<=1.0)
[2024-03-13 09:08] LABS: AMPHET/METH SCREEN,URINE NEGATIVE (NEGATIVE); BARBITURATE SCREEN, URINE NEGATIVE (NEGATIVE); BENZODIAZEPINES SCREEN,URINE NEGATIVE (NEGATIVE); CANNABINOID SCREEN,URINE NEGATIVE (NEGATIVE); COCAINE SCREEN,URINE NEGATIVE (NEGATIVE); METHADONE SCREEN, URINE NEGATIVE (NEGATIVE); OPIATE SCREEN,URINE NEGATIVE (NEGATIVE); PHENCYCLIDINE SCREEN,URINE NEGATIVE (NEGATIVE)
[2024-03-13 09:12] LABS: BACTERIA,URINE None Seen /HPF (None Seen); RBC,URINE 0-2 /HPF (0-2); SQUAMOUS EPITHELIAL CELL,UR Rare /LPF (None Seen); WBC,URINE None Seen /HPF (0-5)
[2024-03-13 09:18] LABS: ALCOHOL, URINE DRUG SCREEN NEGATIVE (NEGATIVE)
== END 2024-03-13 17:35 | disposition home or self-care (01) | DRG 751 ==
LOC: B3A 20:52
PROVIDERS: ADMIT Psychiatry & Neurology Psychiatry; ATTEND Psychiatry & Neurology Psychiatry
DX: F33.9 Major depressive disorder, recurrent, unspecified (principal); F25.9 Schizoaffective disorder, unspecified; R45.851 Suicidal ideations; G40.909 Epilepsy, unspecified, not intractable, without status epilepticus; F41.9 Anxiety disorder, unspecified; E66.9 Obesity, unspecified; Z20.822 Contact with and (suspected) exposure to COVID-19; Z68.31 Body mass index [BMI] 31.0-31.9, adult; K59.00 Constipation, unspecified; G47.00 Insomnia, unspecified
CPT/HCPCS: 80053; 80061; 80307; 81001; 83036; 84439; 84443; 84702; 85025; 86803; 87340; 36415-L1; 36415-TC; Z7610

== ENCOUNTER → 2024-03-09 | Emergency (ER) | payer MEDICAID ==
[~2024-03-09] VITALS: Ht 157.5 cm; Wt 69.1 kg
[~2024-03-09] MED LIST changes: -BENZ2TAB71 PO; +BENZ2TAB84 PO; -CLOZ100T68 PO; +LEVE-71 PO; -LEVE750T66 PO; -QUET100T PO; +QUET200T30 PO
[2024-03-10 02:30] VITALS: BP 101/70; PULSE 66; RESP 16; TEMP 98.5; O2SAT 100
== END | disposition still patient (30) ==
LOC: EMS 22:58
DX: S63.502A Unspecified sprain of left wrist, initial encounter (principal); F25.1 Schizoaffective disorder, depressive type; F41.9 Anxiety disorder, unspecified; F32.A Depression, unspecified; E11.9 Type 2 diabetes mellitus without complications; Z88.8 Allergy status to other drugs, medicaments and biological substances; X58.XXXA Exposure to other specified factors, initial encounter; Y93.89 Activity, other specified; Y92.89 Other specified places as the place of occurrence of the external cause; Y99.8 Other external cause status
CPT/HCPCS: 99283; Z7502

== ENCOUNTER 2024-12-04 20:21 | Inpatient (IN) | payer MEDICAID ==
[~2024-12-04] VITALS: Ht 165.1 cm; Wt 84.5 kg
[~2024-12-04 20:21] MED LIST changes: +BENZ0.5T52 PO; -BENZ2TAB84 PO; -BUSP10TA23 PO; +DOCU-385 PO; +FLUO-418 PO; -LEVE-71 PO; +LEVE250T81 PO; +OLAN1TAB5 PO; +QUET100T PO; -QUET200T30 PO; +SENN-376 PO
[2024-12-04] MEDS ORDERED: haloperidoL 5 MG TABLET PO PRN (20:45)
[2024-12-05 01:17] VITALS: BP 136/69; PULSE 76; RESP 16; TEMP 97.7; O2SAT 96
[2024-12-05 08:24] VITALS: BP 116/64; PULSE 83; RESP 16; TEMP 97.8; O2SAT 96
[2024-12-05] MEDS ORDERED: MAG HYDROX/ALUMINUM HYD/SIMETH ES 30 ML SUSPENSION UDCUP PO PRN (09:00)
[2024-12-05] MEDS ORDERED: LOPERAMIDE HCL 2 MG CAPSULE PO PRN (09:00)
[2024-12-05] MEDS ORDERED: OMEPRAZOLE 20 MG CAPSULE PO PRN (09:00)
[2024-12-05] MEDS ORDERED: IBUPROFEN 600 MG TABLET PO PRN (09:00)
[2024-12-05] MEDS ORDERED: ONDANSETRON 4 MG TABLET PO PRN (09:00)
[2024-12-05] MEDS ORDERED: ALBUTEROL SULFATE HFA 90 MCG/PUFF 8 GM INHALER IH PRN (09:00)
[2024-12-05] MEDS ORDERED: MAGNESIUM HYDROXIDE SUSPENSION 30 ML UDCUP PO PRN (09:00)
[2024-12-05] MEDS ORDERED: PETROLATUM,WHITE 28 GM JELLY TP PRN (09:00)
[2024-12-05] MEDS ORDERED: ACETAMINOPHEN 325 MG TABLET PO PRN (09:00)
[2024-12-05] MEDS ORDERED: BENZOCAINE/MENTHOL [CEPACOL] LOZENGE PO PRN (09:00)
[2024-12-05] MEDS ORDERED: CloNIDine HCL 0.1 MG TABLET PO PRN (09:00)
[2024-12-05] MEDS ORDERED: DOCUSATE SODIUM 100 MG CAPSULE PO PRN (09:00)
[2024-12-05] MEDS ORDERED: BACITRACIN 28 GM OINTMENT TP PRN (09:00)
[2024-12-05 09:30] LABS: BASOPHILS % (AUTO) 0.5 % (0.0-2.0); EOSINOPHILS % (AUTO) 0.5 % (1.0-6.0); HEMATOCRIT 39.2 % (36-46); LYMPHOCYTES # (AUTO) 1.9 K/uL (1.0-4.8); LYMPHOCYTES % (AUTO) 27.8 % (22.0-44.0); MEAN CORPUSCULAR HEMOGLOBIN 30.5 pg (26.0-34.0); MEAN CORPUSCULAR HGB CONC 33.2 G/dL (31.0-37.0); MEAN CORPUSCULAR VOLUME 92 fL (80-100); MONOCYTES # (AUTO) 0.5 K/uL (0.1-1.0); MONOCYTES % (AUTO) 6.7 % (2.0-9.0); NEUTROPHILS # (AUTO) 4.5 K/uL (1.8-7.7); NEUTROPHILS % (AUTO) 64.5 % (40.0-70.0); PLATELET COUNT (AUTO) 276 K/uL (150-450); RED BLOOD CELL COUNT(AUTO) 4.27 MIL/uL (4.00-5.20); RED CELL DISTRIBUTION WIDTH 12.8 % (11.5-14.5); WHITE BLOOD COUNT (AUTO) 6.9 K/uL (4.5-11.0)
[2024-12-05 09:54] LABS: HEMOGLOBIN A1C 5.1 % (3.8-5.6)
[2024-12-05 09:57] LABS: ALANINE AMINOTRANSFERASE 21 U/L (12-78); ALBUMIN 3.5 g/dL (3.4-5.0); ALKALINE PHOSPHATASE 83 U/L (46-116); ANION GAP 7 mmol/L (8-16); ASPARTATE AMINOTRANSFERASE 16 U/L (15-37); BILIRUBIN,TOTAL 0.4 mg/dL (0.1-1.0); CALCIUM, TOTAL 8.8 mg/dL (8.8-10.5); CARBON DIOXIDE 26 mmol/L (22-29); CHLORIDE 105 mmol/L (98-107); CHOL/HDL RATIO 2.4 (3.9-5.7); CHOLESTEROL 173 mg/dL (131-200); CREATININE 0.71 mg/dL (0.60-1.30); GLOMERULAR FILTR. RATE CALC > 60 mL/min (>60); GLUCOSE,RANDOM 80 mg/dL (70-110); HCG,QUANTITATIVE 1 mIU/mL (0-6); HDL CHOLESTEROL 72 mg/dL (40-60); LDL CHOL (CALC.) 90 mg/dL (0-130); POTASSIUM 4.1 mmol/L (3.5-5.1); SODIUM SERUM 138 mmol/L (136-145); T4 (THYROXINE) 6.2 mcg/dL (4.7-13.3); THYROID STIMULATING HORMONE 1.39 uIU/mL (0.36-3.74); TOTAL PROTEIN, SERUM 7.2 g/dL (6.4-8.2); TRIGLYCERIDES 55 mg/dL (15-150); UREA NITROGEN, BLOOD 14 mg/dL (7-18)
[2024-12-05] MEDS: FLUoxetine HCL 20 MG CAPSULE PO SCH (13:27)
[2024-12-05] MEDS: LevETIRAcetam 250 MG TABLET PO SCH (13:30)
[2024-12-05 20:20] VITALS: BP 110/64; PULSE 74; RESP 16; TEMP 97.4; O2SAT 99
[2024-12-05] MEDS ORDERED: DiphenhydrAMINE HCL 50 MG/ML VIAL ONE (20:50)
[2024-12-05] MEDS ORDERED: haloperidoL LACTATE 5 MG/ML VIAL ONE (20:50)
[2024-12-05] MEDS ORDERED: LORazepam 2 MG/ML VIAL ONE (20:50)
[2024-12-05] MEDS: DiphenhydrAMINE HCL 50 MG/ML VIAL IM ONE (21:12)
[2024-12-05] MEDS: LORazepam 2 MG/ML VIAL IM ONE (21:12)
[2024-12-05] MEDS: haloperidoL LACTATE 5 MG/ML VIAL IM ONE (21:13)
[2024-12-05] MEDS: QUEtiapine FUMARATE 100 MG TABLET PO SCH (22:03)
[2024-12-06 02:07] LABS: HEPATITIS C AB (EIA) Non Reactive (Non Reactive)
[2024-12-06 13:47] VITALS: RESP 18
[2024-12-06 21:04] VITALS: BP 122/61; PULSE 98; RESP 17; TEMP 97.7; O2SAT 99
[2024-12-07] MEDS: ZOLPIDEM TARTRATE 10 MG TABLET PO PRN (00:17)
[2024-12-07 09:31] VITALS: BP 106/67; PULSE 63; RESP 16; TEMP 98.1; O2SAT 99
[2024-12-07 21:09] VITALS: BP 108/68; PULSE 90; RESP 18; TEMP 97.2; O2SAT 97
[2024-12-08 08:23] VITALS: BP 106/63; PULSE 76; RESP 16; TEMP 96.9; O2SAT 99
[2024-12-08] MEDS: LevETIRAcetam 500 MG TABLET PO SCH (09:09)
[2024-12-08] MEDS: LORazepam 1 MG TABLET PO PRN (16:42)
[2024-12-08 20:30] VITALS: BP 114/80; PULSE 78; RESP 19; TEMP 97.7; O2SAT 98
[2024-12-08] MEDS ORDERED: LEVE-71 PO (22:26)
[2024-12-08] MEDS ORDERED: FLUO-418 PO (22:26)
[2024-12-08] MEDS ORDERED: QUET100T34 PO (22:26)
[2024-12-09 08:12] LABS: APPEARANCE,URINE CLEAR (CLEAR); BILIRUBIN,URINE NEGATIVE (NEGATIVE); COLOR,URINE YELLOW (YELLOW); GLUCOSE, URINE (UA) NEGATIVE (NEGATIVE); KETONES,URINE NEGATIVE (NEGATIVE); NITRATE,URINE NEGATIVE (NEGATIVE); OCCULT BLOOD,URINE NEGATIVE (NEGATIVE); PH,URINE 8.5 (5.0-8.0); PROTEIN,URINE TRACE mg/dL (NEGATIVE); SPECIFIC GRAVITIY, URINE 1.023 (1.003-1.030); UROBILINOGEN,URINE <=1.0 mg/dL (<=1.0)
[2024-12-09 08:22] LABS: LEUKOCYTE ESTERASE ,URINE MODERATE (NEGATIVE)
[2024-12-09 08:23] LABS: BACTERIA,URINE Many /HPF (None Seen); RBC,URINE 0-2 /HPF (0-2)
[2024-12-09 08:24] LABS: SQUAMOUS EPITHELIAL CELL,UR Moderate /LPF (None Seen)
[2024-12-09 08:29] VITALS: BP 107/74; PULSE 90; RESP 16; TEMP 97.6; O2SAT 96
[2024-12-09 09:03] LABS: BARBITURATE SCREEN, URINE NEGATIVE (NEGATIVE); CANNABINOID SCREEN,URINE NEGATIVE (NEGATIVE); OPIATE SCREEN,URINE NEGATIVE (NEGATIVE); PHENCYCLIDINE SCREEN,URINE NEGATIVE (NEGATIVE)
[2024-12-09 09:11] LABS: ALCOHOL, URINE DRUG SCREEN NEGATIVE (NEGATIVE); AMPHET/METH SCREEN,URINE NEGATIVE (NEGATIVE); BENZODIAZEPINES SCREEN,URINE NEGATIVE (NEGATIVE); COCAINE SCREEN,URINE NEGATIVE (NEGATIVE); METHADONE SCREEN, URINE NEGATIVE (NEGATIVE)
[2024-12-09] MEDS: PALIPERIDONE PALMITATE 234 MG/1.5 ML SYRINGE IM ONE (15:36)
== END 2024-12-09 18:23 | disposition home or self-care (01) | DRG 750 ==
LOC: B3A 22:42
PROVIDERS: ADMIT Psychiatry & Neurology Psychiatry; ATTEND Psychiatry & Neurology Psychiatry
PROC: GZHZZZZ Group Psychotherapy (ICD-10-PCS; principal; 2024-12-05)
PROC: GZ52ZZZ Individual Psychotherapy, Cognitive (ICD-10-PCS; 2024-12-09)
DX: F25.0 Schizoaffective disorder, bipolar type (principal); R45.851 Suicidal ideations; E11.9 Type 2 diabetes mellitus without complications; G40.909 Epilepsy, unspecified, not intractable, without status epilepticus; E66.9 Obesity, unspecified; F41.9 Anxiety disorder, unspecified; G47.00 Insomnia, unspecified; K59.00 Constipation, unspecified; Z79.899 Other long term (current) drug therapy; Z68.31 Body mass index [BMI] 31.0-31.9, adult
CPT/HCPCS: 80053; 80061; 80307; 81001; 83036; 84436; 84443; 84702; 85025; 86803; 87086; 87340; G0482; J1200; J1630; J2060